=== PATIENT | female | born 1975 | race Caucasian/White ===

== ENCOUNTER 2019-10-25 | Emergency (ER) | payer SELFPAY ==
[2019-10-25] MEDS ORDERED: LORAZEPAM0.5 MG PO (13:20)
[2019-10-25] MEDS ORDERED: ATIVAN0.5 MG PO (13:41)
== END 2019-10-25 13:55 | disposition home or self-care (01) | DRG 880 ==
DX: F41.9 Anxiety disorder, unspecified (principal); T42.4X6A Underdosing of benzodiazepines, initial encounter; F17.210 Nicotine dependence, cigarettes, uncomplicated; Z91.120 Patient's intentional underdosing of medication regimen due to financial hardship